=== PATIENT | male | born 1935 | race Caucasian/White ===

== ENCOUNTER 2016-08-06 16:57 | Inpatient (IN) | payer MEDICARE ==
--- NOTE | 2016-08-06 18:12 | ED ---
General Adult HPI - General Chief complaint: Recheck/Abnormal Lab/Rx Stated complaint: Metastatic Ca Time Seen by Provider: 08/06/16 17:11 Source: EMS Mode of arrival: EMS Limitations: no limitations - History of Present Illness Initial comments: This 80-year-old white male presents with a complaint of some pain into his back and pelvis. He's had some slight lower abdominal pain as well. He relates that this started around 07/16/2016. He apparently was seen by his doctor and had a ultrasound done of his leg. This showed a blood clot. They' re unsure present old blood clot versus a new blood clot. He was not anticoagulated as he does have a [place] filter placed. The pain has gradually became more severe any followed up in the emergency department at [facility] today. They found that he had a lung mass on chest x- ray. They completed a computed tomography scan of the thorax abdomen and pelvis. This does show multiple suspicions for cancerous lesions. It shows a 3.5 cm right middle lobe mass with mediastinal lymphadenopathy, 10th rib lesion , multiple severe metastases throughout the liver, a mass in the left kidney, a pancreatic mass, and multiple significant pelvic metastases as well as a L5 metastases. There is also small abdominal aortic aneurysm and some ascites. He also had a laboratory workup which shows a hemoglobin of 11.5 but otherwise the labs were essentially within normal limits. The EKG showed a normal sinus rhythm with occasional PACs. Due to the lack of oncology treatment at their hospital the family was requesting transfer to our facility. He receives some Dilaudid and Zofran at the other facility and is in much less pain at this time. He has no other complaints or modifying factors. He denies any chest pain shortness breath fever or chills. He states that he had some slight constipation after having Tylenol 3 for his left leg pain. He stopped taking this medication and has had some diarrhea since. - Related Data Home Medications Medication Instructions Recorded Confirmed Acetaminophen-Codeine 300-30mg 1 tab PO Q6H 08/06/16 08/06/16 [Tylenol #3] Aspirin EC [Ecotrin Low Dose] 81 mg PO DAILY 08/06/16 08/06/16 Ferrous Sulfate [Feosol] 325 mg PO DAILY 08/06/16 08/06/16 Lactose-Reduced Food [Boost High 237 ml PO BID 08/06/16 08/06/16 Protein] Meloxicam [Mobic] 7.5 mg PO W/BRKFST 08/06/16 08/06/16 Tamsulosin HCl [Flomax] 0.4 mg PO HS 08/06/16 08/06/16 metFORMIN HCL 1,000 mg PO BID 08/06/16 08/06/16 Allergies Allergy/AdvReac Type Severity Reaction Status Date / Time venom-honey bee Allergy Unknown Verified 08/06/16 17:44 Review of Systems ROS Statement: Those systems with pertinent positive or pertinent negative responses have been documented in the HPI. ROS Other: All systems not noted in ROS Statement are negative. Past Medical History Past Medical History: Diabetes Mellitus, Hyperlipidemia, Hypertension, Osteoarthritis (OA), Prostate Disorder Additional Past Medical History / Comment(s): neuropathy History of Any Multi-Drug Resistant Organisms: None Reported Past Psychological History: No Psychological Hx Reported Past Alcohol Use History: None Reported Past Drug Use History: None Reported General Exam - General Exam Comments Initial Comments: GENERAL: The patient is well nourished and well hydrated. VITAL SIGNS: Heart rate, blood pressure, respiratory rate reviewed as recorded in nurse's notes. EYES: Pupils are round and reactive. Extraocular movements are intact. No conjunctival / lid redness or swelling. ENT: No external evidence of injury, swelling, or ecchymosis. Airway is patent. Throat is clear. NECK: Nontender. No swelling or evidence of injury. No subcutaneous emphysema. Trachea is midline. No thyroid mass. HEART: Regular rate and rhythm. Good peripheral pulses. LUNGS/CHEST: Breath sounds clear and equal bilaterally. No rales, rhonchi, or wheezes. No ecchymosis, subcutaneous emphysema, or tenderness. ABDOMEN: Abdomen soft without tenderness. No palpable masses or organomegaly. No peritoneal signs. No abdominal wall swelling or ecchymosis. EXTREMITIES: There is some tenderness to the left lower back. Normal muscle tone and function. NEUROLOGIC: Sensation is grossly intact. Cranial nerve exam reveals face is symmetrical, tongue is midline, speech is clear. SKIN: No abrasions or ecchymosis is noted. No induration or masses noted. PSYCHIATRIC: Alert and oriented. Appropriate behavior and judgment. Limitations: no limitations Course Vital Signs 08/06/16 17:46 Pulse Rate 78 Respiratory 20 Rate Blood Pressure 123/59 O2 Sat by Pulse 94 L Oximetry Medical Decision Making - Medical Decision Making The patient was seen and examined. All transfer paperwork is reviewed. It is felt as though he is having some intractable pain requiring further admission and further workup in regard to his significant suspicion of cancer with severe metastases. Case is discussed with Dr. Rasmussen and he is agreeable with admission with oncology to consult. Disposition Clinical Impression: Lung cancer, Bone metastases, Liver metastases, Ascites, Abdominal aortic aneurysm, Mediastinal lymphadenopathy Disposition: ADMITTED IP TO THIS HOSP Condition: Fair Time of Disposition: 18:11 Decision Date: 08/06/16 Decision Time: 18:12
[2016-08-06] MEDS ORDERED: ONDANSETRON 4 MG/2 ML VIAL IVP PRN (18:13)
[2016-08-06] MEDS ORDERED: TEMAZEPAM 15 MG CAP PO PRN (18:16)
[2016-08-06] MEDS ORDERED: NALOXONE 0.4 MG/ML 1 ML VIAL IV PRN (18:16)
[2016-08-06] MEDS ORDERED: SODIUM CHLORIDE 0.9% 1,000 ML IV STA (18:16)
[2016-08-06] MEDS ORDERED: ONDANSETRON 8 MG in SODIUM CHLORIDE 0.9% 50 ML IVPB PRN (19:20)
[2016-08-06 19:51] LABS: Glucose,Whole Blood 86 mg/dL (75-99)
[2016-08-06] MEDS ORDERED: metFORMIN 500 MG TAB PO SCH (21:00)
[2016-08-06] MEDS ORDERED: LACTOSE REDUCED FOOD PO SCH (21:00)
[2016-08-06] MEDS: TAMSULOSIN 0.4 MG CAP.ER.24H PO SCH (21:44)
[2016-08-06] MEDS: ENOXAPARIN 40 MG/0.4 ML SYRINGE SQ SCH (21:44)
[2016-08-07] MEDS: HYDROmorphone 1 MG/ML 1 ML SYRINGE IVP PRN ×2 (06:21→14:02)
[2016-08-07 07:13] LABS: Glucose,Whole Blood 90 mg/dL (75-99)
[2016-08-07 07:34] LABS: Basophils % (A) 0 %; CH 30.6; CHCM 32.5; Eosinophils % (A) 0 %; HCT 36.7 % (39.0-53.0); HDW 2.67; HGB 11.4 gm/dL (13.0-17.5); Luc # (Auto) 0.08; Luc % (Auto) 1; Lymphocytes # (A) 0.4 k/uL (1.0-4.8); Lymphocytes % (A) 6 %; MCH 29.5 pg (25.0-35.0); MCHC 31.1 g/dL (31.0-37.0); MCV 94.9 fL (80.0-100.0); Mean Platelet Volume 8.2; Monocytes # (A) 0.5 k/uL (0-1.0); Monocytes % (A) 7 %; Neutrophils # (A) 5.6 k/uL (1.3-7.7); Neutrophils % (A) 85 %; RBC 3.87 m/uL (4.30-5.90); RDW 13.8 % (11.5-15.5); WBC 6.6 k/uL (3.8-10.6); WBC (Perox) 6.98
[2016-08-07 07:53] LABS: ALT 34 U/L (21-72); AST 45 U/L (17-59); Alkaline Phosphatase 118 U/L (38-126); Anion Gap 11 mmol/L; Blood Urea Nitrogen 17 mg/dL (9-20); Carbon Dioxide 26 mmol/L (22-30); Chloride 104 mmol/L (98-107); Glucose 86 mg/dL (74-99); Non-African American GFR(MDRD) >60 (>60 ml/min/1.73 sqM); Potassium 4.2 mmol/L (3.5-5.1); Sodium 141 mmol/L (137-145); Total Bilirubin 0.9 mg/dL (0.2-1.3)
[2016-08-07] MEDS: FERROUS SULFATE 325 MG TAB PO SCH (08:39)
[2016-08-07] MEDS: MELOXICAM 7.5 MG TAB PO SCH (08:39)
[2016-08-07] MEDS: PANTOPRAZOLE 40 MG/10 ML VIAL IV SCH (08:40)
[2016-08-07] MEDS: ENOXAPARIN 40 MG/0.4 ML SYRINGE SQ SCH (08:40)
[2016-08-07] MEDS ORDERED: ASPIRIN 81 MG CHEW PO SCH (09:00)
[2016-08-07 11:28] LABS: Glucose,Whole Blood 91 mg/dL (75-99)
[2016-08-07 11:32] VITALS: BMI 23.7
--- NOTE | 2016-08-07 14:18 | HP ---
DATE OF ADMISSION: CHIEF COMPLAINT: Back pain. HISTORY OF PRESENT ILLNESS: This is the first admission for this 80-year-old white male who was transferred in from an outside hospital. He presented with back pain and was found to have metastatic CA in the spine and liver. Nature of the neoplasm is not known, but he used to smoke but he stopped about 40 years ago. He has had no other known neoplasias. He does not go to the doctor and has not been examined in years. REVIEW OF SYSTEMS: He has had no headaches, focal neurologic deficits, change in vision or hearing, cough, hemoptysis, chest pain, heart disease, hypertension, murmurs, rheumatic fever, orthopnea, PND, abdominal pain, jaundice, hematemesis, melena, hematochezia, pancreatitis, renal disease, diabetes, etc. Past medical history, family history and personal and social histories are unremarkable and noncontributory, otherwise. He does take metformin. He is not allergic to any medication. He had a fracture of the right hip in the past and that is his only surgery. He does not smoke and has not for years. PHYSICAL EXAMINATION: Blood pressure is 116/80 with a pulse of 91, respirations 32, and he is afebrile. GENERAL: Appeared to be in no acute distress. Skin color is normal. Skin is warm and dry. Lymph nodes are not enlarged. Head, ears, eyes, nose, mouth, and throat were normal. The neck veins are not distended. Thyroid is not enlarged. Chest is clear. Cardiac exam demonstrates what sounded like sinus rhythm with no murmurs or extra sounds. The abdomen is soft and liver was enlarged. It was nontender. There are no other masses. Extremities were normal and neurologically he is intact. He is admitted to the hospital. DIAGNOSES: 1. Low back pain due to metastatic neoplasm. 2. Type 2 diabetes. PLAN: 1. Bed rest. 2. IV fluids. 3. Look for source of neoplasm. 4. Hemoglobin A1c. 5. Oncology referral.
--- NOTE | 2016-08-07 14:26 | PN ---
DATE OF SERVICE: 08/07/2016 CHIEF COMPLAINT: Metastatic CA. HISTORY OF PRESENT ILLNESS: This gentleman is fairly comfortable. Will start working on looking for his primary neoplasm. PHYSICAL EXAM: His chest is clear and cardiac exam is normal. The abdomen is soft and liver is unchanged. IMPRESSION: Metastatic cancer, probably from the lung. PLAN: Continue work-up.
[2016-08-07] MEDS ORDERED: traMADol 50 MG TAB PO PRN (14:34)
[2016-08-07 16:48] LABS: Glucose,Whole Blood 114 mg/dL (75-99)
[2016-08-07] MEDS: TAMSULOSIN 0.4 MG CAP.ER.24H PO SCH (19:55)
[2016-08-07] MEDS: DOCUSATE 100 MG CAP PO SCH (19:55)
[2016-08-07 20:16] LABS: Glucose,Whole Blood 138 mg/dL (75-99)
--- NOTE | 2016-08-07 22:16 | P.CONS ---
History of Present Illness - Reason for Consult Consult date: 08/07/16 Metastatic malignancy - History of Present Illness The patient is an 80-year-old gentleman, with the well maintained performance status, up to about 1-2 months ago. About 2 months so, the patient had developed left-sided low back pain with radiation down the leg. This had progressively become more persistent and severe. Last week, the patient had Doppler of the lower extremities because of increasing pain as well as some swelling, which apparently revealed a below knee clot. The formal report is not available to me and therefore it is not clear if this was a deep vein or superficial thrombosis. Apparently a follow-up study was recommended, but the patient was unable to have that because of increasing pain which made it difficult for him to ambulate. Due to these symptoms, he ultimately went to [facility] emergency room. He had a chest x-ray done, which revealed evidence of a right lower lung field mass. This led to CT scans, which confirmed the presence of a 3.5 cm mass in the right lower lung field. In addition the patient was noted to have massive involvement of the liver with metastatic-appearing lesions, as well as bone lesions consistent with metastasis. The post-prominent one was the extensive involvement of almost the entire left iliac bone. The patient was therefore transferred here for further evaluation and recommendations. The patient states that he had developed are DVT in the right lower extremity , in the . He was on warfarin for several years. In 1999 and 2005, he stopped warfarin. At that time he had an IVC filter placed by Dr. Xiao. He denied any prior history of malignancy. He quit smoking about 30 years ago, but prior to that had smoked anywhere from 2-4 packs per day for almost 40 years. Review of Systems Constitutional: Reports poor appetite, Reports weakness, Reports weight loss Eyes: denies blurred vision, denies pain Ears: deny: decreased hearing, ear discharge, earache, tinnitus Ears, nose, mouth and throat: Denies headache, Denies sore throat Cardiovascular: Denies chest pain, Denies shortness of breath Respiratory: Denies cough Gastrointestinal: Denies abdominal pain, Denies diarrhea, Denies nausea, Denies vomiting Genitourinary: Reports urinary frequency Musculoskeletal: Reports shooting leg pain (Left lower extremity) Integumentary: Denies pruritus, Denies rash Neurological: Reports weakness Psychiatric: Denies anxiety, Denies depression Endocrine: Reports weight change Hematologic/Lymphatic: Reports as per HPI Past Medical History Past Medical History: Diabetes Mellitus, Deep Vein Thrombosis (DVT), Osteoarthritis (OA), Prostate Disorder Additional Past Medical History / Comment(s): constipation-pt stated was put on tyl #3 for pain(dvt) which constipated him so he took stool softners now has been having loose diarrhea/watery stools more then 3 times a day for past 3 days.stated had contrast dye and told not to take his metformin for 2 days. " had pne vaccine thinks van than 5 years ago" [facility] closed at time of admitunable to verify date. History of Any Multi-Drug Resistant Organisms: None Reported Past Surgical History: Adenoidectomy, Tonsillectomy Additional Past Surgical History / Comment(s): [place] filter, alfred cataracts- lens implants, rt ear sx to repair hole/ear drum, broke rt hip has screws in place, alfred knee sx -denies replacments Past Anesthesia/Blood Transfusion Reactions: No Reported Reaction Past Psychological History: No Psychological Hx Reported Additional Psychological History / Comment(s): pt is a ,lives in own home alone. 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 Smoking Status: Former smoker Past Alcohol Use History: Daily Additional Past Alcohol Use History / Comment(s): started smoking at age 6 by the time he quit 30-40 years ago he was smoking 4 ppd.drinks 1-2 beer per day Past Drug Use History: None Reported - Past Family History Mother Family Medical History: No Reported History Additional Family Medical History / Comment(s): no known hx Father Family Medical History: Congestive Heart Failure (CHF), Hypertension Medications and Allergies Home Medications Medication Instructions Recorded Confirmed Type Acetaminophen-Codeine 300-30mg 1 tab PO Q6H 08/06/16 08/06/16 History [Tylenol #3] Aspirin EC [Ecotrin Low Dose] 81 mg PO DAILY 08/06/16 08/06/16 History Ferrous Sulfate [Feosol] 325 mg PO DAILY 08/06/16 08/06/16 History Lactose-Reduced Food [Boost High 237 ml PO BID 08/06/16 08/06/16 History Protein] Meloxicam [Mobic] 7.5 mg PO W/BRKFST 08/06/16 08/06/16 History Tamsulosin HCl [Flomax] 0.4 mg PO HS 08/06/16 08/06/16 History metFORMIN HCL 1,000 mg PO BID 08/06/16 08/06/16 History Allergies Allergy/AdvReac Type Severity Reaction Status Date / Time venom-honey bee Allergy Unknown Verified 08/06/16 17:44 Physical Exam Vitals: Vital Signs Temp Pulse Resp BP Pulse Ox 08/07/16 14:59 97.6 F 88 20 118/60 91 L 08/07/16 07:00 97 F L 80 20 116/55 90 L 08/06/16 22:46 98.3 F 74 18 120/57 92 L Intake and Output 08/07/16 08/07/16 08/07/16 06:59 14:59 22:59 Intake Total 640 Balance 640 Intake: IV 400 Sodium Chloride 0.9% 1, 400 000 ml @ 50 mls/hr IV . Q20H STA Rx#:[id number] Oral 240 Other: Voiding Method Urinal Urinal Urinal # Voids 3 Weight 77.111 kg 77.111 kg Patient Weight 08/08/16 06:59 Weight 77.111 kg - Constitutional General appearance: no acute distress - EENT Eyes: EOMI, PERRLA ENT: hearing grossly normal, normal oropharynx - Neck Neck: no lymphadenopathy Thyroid: bilateral: normal size - Respiratory Respiratory: bilateral: CTA - Cardiovascular Rhythm: regular Heart sounds: normal: S1, S2 - Gastrointestinal General gastrointestinal: normal bowel sounds, soft - Integumentary Integumentary: normal - Neurologic Neurologic: CNII-XII intact - Musculoskeletal Musculoskeletal: left sided weakness (Mildly reduced strength, at left hip joint ) - Psychiatric Psychiatric: A&O x's 3, appropriate affect Results CBC & Chem 7: 08/07/16 07:09 08/07/16 07:09 Labs: Abnormal Lab Results - Last 24 Hours (Table) 08/07/16 08/07/16 08/07/16 Range/Units 07:09 07:09 16:47 RBC 3.87 L (4.30-5.90) m/uL Hgb 11.4 L (13.0-17.5) gm/dL Hct 36.7 L (39.0-53.0) % Lymphocytes # 0.4 L (1.0-4.8) k/uL Creatinine 0.63 L (0.66-1.25) mg/dL POC Glucose (mg/dL) 114 H (75-99) mg/dL Total Protein 6.0 L (6.3-8.2) g/dL Albumin 3.3 L (3.5-5.0) g/dL 08/07/16 Range/Units 20:14 RBC (4.30-5.90) m/uL Hgb (13.0-17.5) gm/dL Hct (39.0-53.0) % Lymphocytes # (1.0-4.8) k/uL Creatinine (0.66-1.25) mg/dL POC Glucose (mg/dL) 138 H (75-99) mg/dL Total Protein (6.3-8.2) g/dL Albumin (3.5-5.0) g/dL Chest x-ray: report reviewed CT scan - abdomen: report reviewed CT scan - chest: report reviewed CT scan - pelvis: report reviewed Assessment and Plan (1) Metastatic cancer Narrative/Plan: Her the results of the CT scans, and implications were discussed with the patient. The clinical picture is of his stay highly suspicious for metastatic malignancy. At this time a definite primary is not evident, though the lung lesion does appear to be somewhat more dominant. However that could also represent a large metastatic lesion. It was discussed with the patient, that the next step is to be a tissue diagnosis. Given that his performance status was well maintained fairly recently, with the most of his symptoms being due to his malignancy, it will be reasonable to continue workup to establish a diagnosis of The case was discussed with interventional radiology. Despite recent aspirin use, most biopsies of these in the safe. In this patient especially, the left iliac bone would be a safe option, even with ongoing aspirin use. The consult was placed to IR. We will follow up once biopsy reports are available Status: Acute (2) Thrombosis of left lower extremity Narrative/Plan: This is presumably related to the underlying cancer. The exact nature of the thrombosis is not known. In fact, at this time it is not clear if this is even deep vein thrombosis or not . I will request the actual Doppler report from [facility]. In the meantime we will hold off on any for dose anticoagulation, which we need to do any way to the biopsies accomplished. If the patient does have a DVT, then anticoagulation should be started. His IVC filter was placed to the 10+ years ago. It was discussed, that IVC filters do not have reliable efficacy after 1-2 years Status: Acute
[2016-08-07] MEDS ORDERED: RX INFO: IV CONTRAST WAS GIVEN 1 EACH MISC MISCELLANE PRN (22:17)
[2016-08-08 07:18] LABS: Glucose,Whole Blood 107 mg/dL (75-99)
[2016-08-08 07:38] LABS: Basophils % (A) 0 %; CH 30.6; Eosinophils % (A) 0 %; HCT 36.5 % (39.0-53.0); HDW 2.66; HGB 11.7 gm/dL (13.0-17.5); Luc # (Auto) 0.11; Luc % (Auto) 1; Lymphocytes # (A) 0.4 k/uL (1.0-4.8); Lymphocytes % (A) 5 %; MCH 29.9 pg (25.0-35.0); MCV 93.3 fL (80.0-100.0); Mean Platelet Volume 7.9; Monocytes # (A) 0.5 k/uL (0-1.0); Monocytes % (A) 7 %; Neutrophils # (A) 6.6 k/uL (1.3-7.7); Neutrophils % (A) 87 %; RBC 3.91 m/uL (4.30-5.90); RDW 13.8 % (11.5-15.5); WBC 7.6 k/uL (3.8-10.6); WBC (Perox) 8.18
[2016-08-08 07:52] LABS: ALT 28 U/L (21-72); AST 45 U/L (17-59); Alkaline Phosphatase 119 U/L (38-126); Anion Gap 11 mmol/L; Blood Urea Nitrogen 17 mg/dL (9-20); Calcium 9.2 mg/dL (8.4-10.2); Carbon Dioxide 23 mmol/L (22-30); Chloride 105 mmol/L (98-107); Glucose 108 mg/dL (74-99); Non-African American GFR(MDRD) >60 (>60 ml/min/1.73 sqM); Potassium 4.1 mmol/L (3.5-5.1); Sodium 139 mmol/L (137-145)
[2016-08-08] MEDS: metFORMIN 500 MG TAB PO SCH ×2 (08:09→15:32)
[2016-08-08] MEDS: MELOXICAM 7.5 MG TAB PO SCH (08:16)
[2016-08-08] MEDS: FERROUS SULFATE 325 MG TAB PO SCH (08:17)
[2016-08-08] MEDS: PANTOPRAZOLE 40 MG/10 ML VIAL IV SCH (08:17)
[2016-08-08] MEDS: DOCUSATE 100 MG CAP PO SCH ×2 (08:18→20:55)
[2016-08-08 11:05] LABS: Glucose,Whole Blood 110 mg/dL (75-99)
[2016-08-08 11:20] LABS: INR 1.3 (<1.1); Prothrombin Time 12.4 sec (9.0-12.0)
[2016-08-08] MEDS: HYDROcodone/APAP 7.5-325MG 1 EACH TAB PO PRN ×2 (15:00→20:58)
--- NOTE | 2016-08-08 15:03 | CT ---
EXAMINATION TYPE: CT brain w con DATE OF EXAM: 08/08/2016 2:48 PM COMPARISON: NONE HISTORY: Lung CA with mets CT DLP: 1121 mGycm Automated exposure control for dose reduction was used. CONTRAST: CT scan of the head is performed with IV Contrast, patient injected with 100 ml mL of Omnipaque 300. FINDINGS: Moderate generalized degenerative change. Periventricular low attenuation compatible with remote micr ovascular ischemia. 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 No enhancing intracran ial lesions. Changes of chronic right mastoiditis noted. There is asymmetric thickening of the base of the skull n ear the sphenoid sinus on the right which could be associated with fibrous dysplasia. Metastasis is a less likely. MRI correlation be obtained. . IMPRESSION: No enhancing mass. Moderate generalized degenerative change seen. There is thickening of the osseous structures with groundglass patchy increased density along the base of the skull the right adjacent t o the right sphenoid sinus. This is nonspecific. No soft tissue mass is seen. This can occasionally s een with fibrous dysplasia. Recommend MRI to exclude metastases.
--- NOTE | 2016-08-08 15:41 | CT ---
EXAMINATION TYPE: CT biopsy bone superficial DATE OF EXAM: 08/08/2016 2:48 PM HISTORY: Metastatic disease COMPARISON: NONE Maximal barrier technique was utilized. The skin overlying a suitable path to the left iliac lytic l esion was localized using CT and the overlying skin was prepped and draped. Lidocaine used for local anesthesia. A skin ana made with a scalpel. Using CT guidance, access was gained to the lesion wi th an 18-gauge needle through a guide needle. Core specimen submitted to pathology. 1 pass performed in all. Following the procedure no immediate complications. The patient is discharged in stable c ondition. Hemostasis achieved. IMPRESSION: SUCCESSFUL CT GUIDED CORE BIOPSY. PATHOLOGY PENDING. THIS PROCEDURE WAS PERFORMED BY THE [facility]
[2016-08-08 17:03] LABS: Glucose,Whole Blood 126 mg/dL (75-99)
--- NOTE | 2016-08-08 19:05 | PN ---
DATE OF SERVICE: 08/08/2016 CHIEF COMPLAINT: Metastatic cancer. . HISTORY OF PRESENT ILLNESS: This gentleman is to get a biopsy of the left groin today. PHYSICAL EXAMINATION: Chest is clear. Cardiac exam is normal. The abdomen is soft and non-tender. IMPRESSION: Metastatic cancer. PLAN: Biopsy today.
[2016-08-08 20:13] LABS: Glucose,Whole Blood 129 mg/dL (75-99)
[2016-08-08] MEDS: TAMSULOSIN 0.4 MG CAP.ER.24H PO SCH (20:55)
[2016-08-09 08:28] LABS: Glucose,Whole Blood 94 mg/dL (75-99)
[2016-08-09] MEDS: metFORMIN 500 MG TAB PO SCH (08:36)
[2016-08-09] MEDS: MELOXICAM 7.5 MG TAB PO SCH (08:39)
[2016-08-09] MEDS: DOCUSATE 100 MG CAP PO SCH (08:39)
[2016-08-09] MEDS: FERROUS SULFATE 325 MG TAB PO SCH (08:40)
[2016-08-09] MEDS: ENOXAPARIN 40 MG/0.4 ML SYRINGE SQ SCH (08:40)
[2016-08-09] MEDS: PANTOPRAZOLE 40 MG/10 ML VIAL IV SCH (08:41)
[2016-08-09 09:57] VITALS: BP 124/60; PULSE 73; RESP 16; TEMP 97.6
[2016-08-09 12:11] LABS: Glucose,Whole Blood 91 mg/dL (75-99)
--- NOTE | 2016-08-09 12:12 | P.DS ---
Providers Date of admission: 08/06/16 18:16 Expected date of discharge: 08/09/16 Attending physician: Delvin Rasmussen Consults: dr nicholson Primary care physician: Marcel Roberts [facility] Course: 80-year-old male who was transferred from [facility] on August 06. Patient was being seen at the facility for pain in his back and his pelvic. Patient stated the pain started around 07/16/2016. He reportedly had a doctor visit did do an ultrasound. Part of the workup at that time showed a lung mass on chest x-ray. Patient had a CAT scan of the thorax abdomen and pelvis. It showed multiple suspicious areas for cancer lesions. There was a 3.5 cm right middle lobe mass. Also questionable mass in the pancreas and multiple pelvic metastasis noted also abdominal aortic aneurysm was noted. There was mediastinal lymph adenopathy noted given the clinical findings patient was transferred an oncology consultation was requested Patient does give a history of having a DVT in the right lower extremity in . At the time he was on Coumadin. In 1999 and 2005 he supposedly stop the Coumadin. He had a filter placed by Dr. Xiao. Gives no prior history of malignancy. Patient stated he quit smoking cigarettes [address] Nicholson did have conversation with the patient. Given his performance status and patient's symptoms tissue biopsy was recommended. Patient agreed to undergo by interventional radiology a tissue biopsy which was done on the . Anticoagulation was held off given that the patient's biopsies needed to be accomplished. Patient elected port to proceed and did undergo by interventional radiology CT biopsy of the left iliac. Patient was felt to be medically stable and appropriate proceed with a discharge to home. The pathology report was pending. The family was updated on the plan the plan is for the patient to follow-up with Dr. Nicholson in the outpatient setting The patient is an 80-year-old gentleman, with the well maintained performance status, up to about 1-2 months ago. About 2 months so, the patient had developed left-sided low back pain with radiation down the leg. This had progressively become more persistent and severe. Last week, the patient had Doppler of the lower extremities because of increasing pain as well as some swelling, which apparently revealed a below knee clot. The formal report is not available to me and therefore it is not clear if this was a deep vein or superficial thrombosis. Apparently a follow-up study was recommended, but the patient was unable to have that because of increasing pain which made it difficult for him to ambulate. Due to these symptoms, he ultimately went to [facility] emergency room. He had a chest x-ray done, which revealed evidence of a right lower lung field mass. This led to CT scans, which confirmed the presence of a 3.5 cm mass in the right lower lung field. In addition the patient was noted to have massive involvement of the liver with metastatic-appearing lesions, as well as bone lesions consistent with metastasis. The post-prominent one was the extensive involvement of almost the entire left iliac bone. The patient was therefore transferred here for further evaluation and recommendations. The patient states that he had developed are DVT in the right lower extremity , in the . He was on warfarin for several years. In 1999 and 2005, he stopped warfarin. At that time he had an IVC filter placed by Dr. Xiao. He denied any prior history of malignancy. He quit smoking about 30 years ago, but prior to that had smoked anywhere from 2-4 packs per day for almost 40 years. Impression discharge diagnosis Present on admission intractable lower back pain and pelvic pain suspect due to malignancy with metastasis History of a prior DVT Chest x-ray show right lower lung field mass present on admission suspect malignancy CAT scan confirmed a 3.5 cm mass in the right lower lung field likely due to malignancy suspicious for cancer Metastatic cancer Thrombosis of left lower extremity Physical debilitated gait and balance use of a walker for stable mobility suspect due to chronic illness The above dictated assessment and findings were discussed with dr rasmussen . Impression and the plan of care have been dictated as directed. Sabrina Dickson nurse practitioner acting as a scribe for jerrica Patient Condition at Discharge: Fair Plan - Discharge Summary New Discharge Prescriptions: HYDROcodone/APAP 7.5-325MG [Lester 7.5-325] 1 tab PO Q4H PRN #30 tab PRN Reason: Pain HYDROcodone/APAP 7.5-325MG [Lester 7.5-325] 1 each PO Q4H PRN #30 tab PRN Reason: Pain Discharge Medication List Acetaminophen-Codeine 300-30mg [Tylenol w/codeine #3] 1 tab PO Q6H 08/06/16 [ History] Aspirin EC [Ecotrin Low Dose] 81 mg PO DAILY 08/06/16 [History] Ferrous Sulfate [Iron (65 MG Elemental)] 325 mg PO DAILY 08/06/16 [History] Lactose-Reduced Food [Boost High Protein] 237 ml PO BID 08/06/16 [History] Meloxicam [Mobic] 7.5 mg PO W/BRKFST 08/06/16 [History] Tamsulosin HCl [Flomax] 0.4 mg PO HS 08/06/16 [History] metFORMIN HCL 1,000 mg PO BID 08/06/16 [History] Docusate [Colace] 100 mg PO BID cap 08/09/16 [Rx] HYDROcodone/APAP 7.5-325MG [Lester 7.5-325] 1 each PO Q4H PRN #30 tab 08/09/16 [ Rx] HYDROcodone/APAP 7.5-325MG [Lester 7.5-325] 1 tab PO Q4H PRN #30 tab 08/09/16 [Rx ] Follow up Appointment(s)/Referral(s): Marcel Roberts MD [Primary Care Provider] - 1-2 days Conner Nicholson MD [STAFF PHYSICIAN] - 1 Week Discharge Disposition: HOME WITH HOME HEALTH SERVICES
[2016-08-09] MEDS: HYDROcodone/APAP 7.5-325MG 1 EACH TAB PO PRN (12:48)
--- NOTE | 2016-08-09 17:03 | PN ---
DATE OF SERVICE: 08/09/2016 CHIEF COMPLAINT: Metastatic cancer of lung. HISTORY OF PRESENT ILLNESS: This gentleman had his biopsy yesterday. He is doing fine. Oncology thinks that he can go home. A lengthy discussion was held with the family, and they are going to try to take him home with hospice. We will have [facility] talk to them about the arrangements.
--- NOTE | 2016-08-11 22:09 | DS ---
DATE OF ADMISSION: 08/06/2016 DATE OF DISCHARGE: 08/09/2016 CHIEF COMPLAINT: Metastatic cancer. HISTORY OF PRESENT ILLNESS AND PHYSICAL EXAMINATION: Details of this man's history and physical can be in the initial work-up. LABORATORY STUDIES: While he was in the hospital he had laboratory studies, the details of which can be found in the laboratory section of the chart. COURSE IN THE HOSPITAL: After admission, he was placed on bed rest and started on intravenous fluids and referred to oncology for possible treatment pending pathologic determination of the type of malignancy that he suffered. Biopsy was done and results are pending and the family is anxious to take patient home and this is approved by oncology. He will be followed by oncology and we will see him on a p.r.n. basis. FINAL DIAGNOSES: Metastatic cancer, probable lung. Operations: None. CONSULTATIONS: Oncology. He is improved.
== END 2016-08-09 13:20 | disposition home or self-care (01) | DRG 478 ==
LOC: EC 16:57 → 5ONC 18:16
PROVIDERS: ADMIT Family Medicine; ATTEND Family Medicine
PROC: 0QB33ZX Excision of Left Pelvic Bone, Percutaneous Approach, Diagnostic (ICD-10-PCS; principal; 2016-08-08)
DX: C79.51 Secondary malignant neoplasm of bone (principal); C78.7 Secondary malignant neoplasm of liver and intrahepatic bile duct; C79.89 Secondary malignant neoplasm of other specified sites; R18.8 Other ascites; I82.4Z9 Acute embolism and thrombosis of unspecified deep veins of unspecified distal lower extremity; C34.2 Malignant neoplasm of middle lobe, bronchus or lung; G62.9 Polyneuropathy, unspecified; E11.9 Type 2 diabetes mellitus without complications; G89.3 Neoplasm related pain (acute) (chronic); R59.0 Localized enlarged lymph nodes; K86.9 Disease of pancreas, unspecified; N28.89 Other specified disorders of kidney and ureter; I71.4 Abdominal aortic aneurysm, without rupture; E78.5 Hyperlipidemia, unspecified; I10 Essential (primary) hypertension; N42.9 Disorder of prostate, unspecified; M19.90 Unspecified osteoarthritis, unspecified site; Z87.891 Personal history of nicotine dependence; Z86.718 Personal history of other venous thrombosis and embolism; Z98.42 Cataract extraction status, left eye; Z98.41 Cataract extraction status, right eye; Z96.1 Presence of intraocular lens; Z79.84 Long term (current) use of oral hypoglycemic drugs; Z79.82 Long term (current) use of aspirin; Z79.1 Long term (current) use of non-steroidal anti-inflammatories (NSAID); Z79.899 Other long term (current) drug therapy
CPT/HCPCS: 20220; 70460; 77012; 80053; 85025; 85610; 88307; 88341; 88342; 99285